=== PATIENT | female | born 1945 | race Asian ===

== ENCOUNTER 2018-10-20 20:13 | Inpatient (IN) | payer MEDICARE, OTHER ==
[~2018-10-20] VITALS: Ht 157.5 cm; Wt 49.9 kg
--- NOTE | 2018-10-20 20:22 | NUR ---
RALPH FROM HOME FOR MEDICAL CLEARANCE, PT ON HOLD OF TODAY AT 1842 FOR DTS. PLAN TO HANG HERSELF NAKED FROM [facility]. NO MEDICAL COMPLAINTS AT THIS TIME. ON MONITOR, MADE COMFORTABLE, READY FOR EVAL.
[2018-10-20 20:45] LABS: BASOPHILS # (AUTO) 0.1 /CMM (0.0-0.2); BASOPHILS % (AUTO) 1.3 % (0.0-2.0); EOSINOPHILS % (AUTO) 1.1 % (0.0-6.0); HEMATOCRIT 39 % (33-45); HEMOGLOBIN 13.1 g/dL (11.5-14.8); LYMPHOCYTES # (AUTO) 2.1 /CMM (0.8-4.8); MEAN CORPUSCULAR HGB CONC 33 g/dl (31.0-36.0); MEAN CORPUSCULAR VOLUME 89 fL (82-100); MONOCYTES # (AUTO) 0.3 /CMM (0.1-1.30); MONOCYTES % (AUTO) 5.6 % (2.0-12.0); NEUTROPHILS # (AUTO) 3.2 /CMM (1.8-8.9); PLATELET COUNT (AUTO) 197 /CMM (150-450); RED BLOOD CELL COUNT(AUTO) 4.41 MIL/uL (4.0-5.2); WHITE BLOOD COUNT (AUTO) 5.7 K/uL (4.3-11.0)
[2018-10-20 20:51] LABS: APPEARANCE,URINE Clear (CLEAR); BILIRUBIN,URINE Negative (NEGATIVE); BLOOD, URINE Trace-intact Ery/uL (NEGATIVE); COLOR,URINE Yellow (YELLOW); KETONES,URINE Negative (NEGATIVE); LEUKOCYTE ESTERASE ,URINE Negative (NEGATIVE); NITRITE, URINE Negative (NEGATIVE); PROTEIN,URINE Negative (NEGATIVE); UGLUCOSE Negative (NEGATIVE); UROBILINOGEN,URINE 0.2 EU/dL (0.2)
[2018-10-20 20:54] LABS: CALCIUM, SERUM 9.2 mg/dL (8.5-10.1); CARBON DIOXIDE 32 mmol/L (21-32); CHLORIDE 106 mmol/L (98-107); CREATININE 0.8 mg/dL (0.6-1.3); GLUCOSE 121 mg/dL (74-106); POTASSIUM 4.4 mmol/L (3.5-5.1); SODIUM SERUM 143 mmol/L (136-145); UREA NITROGEN, BLOOD 18 mg/dL (7-18)
[2018-10-20 20:56] LABS: BACTERIA,URINE Rare /HPF (None Seen); SQUAMOUS EPITHELIAL CELL,UR Few /HPF (None Seen); WBC,URINE NONE SEEN /HPF (0-3)
[2018-10-20 20:59] LABS: ALANINE AMINOTRANSFERASE 20 U/L (12-78); ALKALINE PHOSPHATASE 101 U/L (46-116); ASPARTATE AMINOTRANSFERASE 16 U/L (15-37); BILIRUBIN,DIRECT 0.1 mg/dL (0.0-0.2); BILIRUBIN,TOTAL 0.2 mg/dL (0.2-1.0)
[2018-10-20 21:01] LABS: ACETAMINOPHEN < 2 ug/ml (10-30); ALCOHOL, BLOOD < 3 mg/dL (0-0); SALICYLATE 0.2 mg/dL (2.8-20.0)
--- NOTE | 2018-10-20 21:28 | NUR ---
CALLED FOR GPS BED [id number], TURNED IN MOVE SHEET
--- NOTE | 2018-10-20 21:40 | NUR ---
CALLED GPS TO GIVE REPORT. ASKED TO CALL BACK IN 30 MIN
--- NOTE | 2018-10-20 22:18 | NUR ---
REPORT GIVEN TO DAVID CID FOR [id number]. PT TRANSFERRED TO UNIT VIA WC
[2018-10-20 22:30] VITALS: BP 154/87
[2018-10-20] MEDS ORDERED: MAG HYDROX/AL HYDROX/SIMETH 30 ML UDC PO PRN (23:30)
[2018-10-20] MEDS ORDERED: BLOOD SUGAR DIAGNOSTIC 1 EACH STRIP IN ONE (23:30)
[2018-10-20] MEDS ORDERED: ZOLPIDEM TARTRATE 5 MG TABLET PO PRN (23:30)
[2018-10-20] MEDS ORDERED: ACETAMINOPHEN 325 MG TABLET PO PRN (23:30)
[2018-10-21] MEDS: LORAZEPAM 0.5 MG TABLET PO PRN ×2 (01:40→21:43)
--- NOTE | 2018-10-21 04:01 | NUR ---
GPS/LEAD SETTER NOTE: ADMITTED A 73 YEAR OLD FEMALE FROM [facility], INITIALLY CAME FROM [facility] ON 150 HOLD FOR DTS. UPON FACE TO FACE PATIENT REPORTED THAT SHE FEELS"A LOT OF DEPRESSION," " EVERYTHING " TRIGGERS HER SUICIDAL THOUGHTS FOR A LEAST 2 WEEKS, SHE ALSO REPORTED THAT SHE IS GOING TO TAKE HER CLOTHES OFF AND HANG HERSELF FROM A BRIDGE. PATIENT CAME TO THE UNIT VIA GURNEY AROUND 2215, A/O X3, SHOWS NO S/S OF ANY PAIN. CALM, COOPERATIVE, DENIES SI/HI, AT THIS TIME. AMBULATORY. SKIN ASSESSMENT DONE, WOUND CONSULT TRIGGERED, HAS LEFT AND RIGHT ARM RASHES, DISCOLORATION, MULTIPLE SCABS. BELONGINGS INVENTORIED AND CHECKED FOR CONTRABAND. PATIENT'S RIGHTS AND MEDICATION GUIDE GIVEN. UNABLE TO NOTIFY FAMILY ABOUT ADMISSION, NOTHING GIVEN PER CHART. PATIENT PLACED ON FALL PRECAUTION, BED LOCKED AND PLACED ON LOWEST POSITION. WILL CONTINUE TO MONITOR Q 15 INS. TO MAINTAIN SAFETY.
[2018-10-21] MEDS ORDERED: GABA-534 PO (05:40)
[2018-10-21] MEDS ORDERED: SIMV20TA6 PO (05:40)
[2018-10-21] MEDS ORDERED: NAPR-1192 PO (05:40)
[2018-10-21 07:29] LABS: ALANINE AMINOTRANSFERASE 18 U/L (12-78); ALBUMIN 3.7 g/dL (3.4-5.0); ALKALINE PHOSPHATASE 63 U/L (46-116); ASPARTATE AMINOTRANSFERASE 20 U/L (15-37); BILIRUBIN,TOTAL 0.5 mg/dL (0.2-1.0); CARBON DIOXIDE 29 mmol/L (21-32); CHLORIDE 106 mmol/L (98-107); CREATININE 0.7 mg/dL (0.6-1.3); GLUCOSE 89 mg/dL (74-106); SODIUM SERUM 142 mmol/L (136-145); TOTAL PROTEIN, SERUM 7.5 g/dL (6.4-8.2); UREA NITROGEN, BLOOD 13 mg/dL (7-18)
[2018-10-21 07:31] LABS: CHOLESTEROL 167 mg/dL (<200); HDL CHOLESTEROL 60 mg/dL (40-60); LDL 99 mg/dL (0-99); TRIGLYCERIDES 57 mg/dL (30-150)
[2018-10-21 08:00] VITALS: BP 130/73
--- NOTE | 2018-10-21 13:47 | NUR ---
WOUND CARE CONSULT: PT PRESENTS AMBULATORY AND CONTINENT WITH SKIN CONDITION ON BOTH WRISTS WHICH PT STATES IS ITCHY. DEFER TO MD FOR SKIN CONDITION. WILL SEE PRN.
--- NOTE | 2018-10-21 13:50 | NUR ---
[facility] [phone] who stated that during a presentation that psychologist Dr. Sifuentes was having at the [facility] pt made a comments using the word "suicide" Emily stated that when her and Dr. Sifuentes approached pt and asked if she had a plan pt responded with, "yes by hanging myself." Emily stated that pt did in fact make a suicidal statement and stated that pt has symptoms of confusion and disorganized from time to time.
--- NOTE | 2018-10-21 14:17 | NUR ---
INITIAL DISCHARGE PLAN: Per patient and son Checo [phone], pt will be discharged back to [facility] [address] [facility] [address] . Roshni, technical coordinator stated pt is able to return once stable. SW will help form a safe and proper discharge in collaboration with .
--- NOTE | 2018-10-21 15:49 | NUR ---
GPS/RN-NOTES SHMUEL FABIAN SEEN THE PATIENT TODAY,MADE AWARE THAT PATIENT'S MEDICATION IN THE COMPUTER AND NEED TO BE RECONCILE.
[2018-10-21 16:00] VITALS: BP 121/72
[2018-10-21] MEDS: MAGNESIUM HYDROXIDE 30 ML UDC PO PRN (18:27)
--- NOTE | 2018-10-21 18:28 | NUR ---
GPS/RN-NOTES PATIENT COMPLAIN OF CONSTIPATION AND REQUESTING FOR MEDICATION. MOM 30 ML GIVEN PRN ORDER. WILL CONT. MONITORING AND ENDORSE TO INCOMING SHIFT FOR CONTINUITY OF CARE.
[2018-10-21 19:58] VITALS: BP 133/71
[2018-10-21] MEDS: SIMVASTATIN 20 MG TABLET PO SCH (21:43)
[2018-10-21] MEDS: QUETIAPINE FUMARATE 25 MG TABLET PO SCH (21:43)
[2018-10-22 08:00] VITALS: BP 103/69
[2018-10-22] MEDS: MAGNESIUM HYDROXIDE 30 ML UDC PO PRN (08:38)
[2018-10-22] MEDS: ESCITALOPRAM OXALATE (10 MG) 10 MG TABLET PO SCH (08:38)
[2018-10-22 16:00] VITALS: BP 113/68
[2018-10-22 20:00] VITALS: BP 129/70
[2018-10-22] MEDS: QUETIAPINE FUMARATE 25 MG TABLET PO SCH (21:12)
[2018-10-22] MEDS: SIMVASTATIN 20 MG TABLET PO SCH (21:12)
[2018-10-23 08:00] VITALS: BP 136/76
[2018-10-23] MEDS: ESCITALOPRAM OXALATE (10 MG) 10 MG TABLET PO SCH (09:02)
[2018-10-23] MEDS: LORAZEPAM 0.5 MG TABLET PO PRN (13:27)
--- NOTE | 2018-10-23 13:27 | NUR ---
RN NOTE: PATIENT CAME TO ME ANXIOUS ASKING FOR ATIVAN AND STATED THAT I NEVER GAVE HER MORNING MEDICATION. I INFORMED HER THAT I DID GIVE HER MORNING MEDICATION BUT PATIENT KEPT STATING THAT I DIDN'T. I WENT OVER THE EMAR WITH THE PATIENT AND PATIENT STILL DIDNT BELIEVE ME AND STATED THAT SHE WANTS THE ATIVAN AND ALWAYS GETS IT FIRST THING IN THE MORNING. I INFORMED HER THAT THE ATIVAN ISN'T AROUND THE CLOCK AND IS ONLY GIVEN WHEN THE PATIENT IS SYMPTOMATIC OR ASKS FOR IT. PATIENT DISAGREES AND KEEPS ARGUING WITH ME. PATIENT STATED SHE WANTED HER ATIVAN. 1MG PO ATIVAN GIVEN DUE TO PATIENT FEELING ANXIOUS, RESTLESS.
[2018-10-23 16:00] VITALS: BP 142/80
[2018-10-23 20:26] VITALS: BP 133/73
[2018-10-23] MEDS: SIMVASTATIN 20 MG TABLET PO SCH (21:12)
[2018-10-23] MEDS: QUETIAPINE FUMARATE 25 MG TABLET PO SCH (21:13)
[2018-10-24 08:00] VITALS: BP 114/69
[2018-10-24] MEDS: ESCITALOPRAM OXALATE (10 MG) 10 MG TABLET PO SCH (09:05)
[2018-10-24] MEDS: LORAZEPAM 0.5 MG TABLET PO PRN (12:47)
--- NOTE | 2018-10-24 12:47 | NUR ---
RN NOTE: PATIENT COMPLAINING OF ANXIETY. ATIVAN 1 MG PO PRN GIVEN.
[2018-10-24 16:00] VITALS: BP 134/69
[2018-10-24 20:09] VITALS: BP 127/74
[2018-10-24] MEDS: QUETIAPINE FUMARATE 25 MG TABLET PO SCH (21:08)
[2018-10-24] MEDS: SIMVASTATIN 20 MG TABLET PO SCH (21:08)
[2018-10-25 08:00] VITALS: BP 112/71
[2018-10-25] MEDS: ESCITALOPRAM OXALATE (10 MG) 10 MG TABLET PO SCH (09:20)
[2018-10-25] MEDS: LORAZEPAM 0.5 MG TABLET PO PRN (13:51)
--- NOTE | 2018-10-25 13:54 | NUR ---
RN-CO: ATIVAN 1 MG PO GIVEN FOR ANXIETY.
--- NOTE | 2018-10-25 14:36 | NUR ---
KATERYNA contacted pts flakita Kessler [phone] and informed him pt will be discharged tomorrow 10/26/18, son stated he would pick pt up at 1000am and transport pt home.
--- NOTE | 2018-10-25 15:04 | NUR ---
KATERYNA contacted Dr. Bear Pulido Address: [address] [place] [phone] and left a voicemail requesting follow up appointment for pt.
--- NOTE | 2018-10-25 15:32 | NUR ---
DISCHARGE NOTE: Pt will be discharged on Wednesday10/26/18 at 10:00am home to [facility] [address] [facility] [address] . Pts son Checo [phone] will be picking pt up and transporting home. Pt will be followed up on by psychiatrist from [facility] Dr. Bear Pulido Address: [address] [place] [address] on Wednesday10/28/18 at 2:00pm. Pt will also follow up at [facility] health service in [facility] Address: [address] [facility] [address], [place] [address] , faxed clinical information to Pt was also given a referral to [facility] Address: [address] [place] [address] . The multidisciplinary exitcare form was done, printed, signed, and given to the patient.
[2018-10-25 16:00] VITALS: BP 134/76
[2018-10-25] MEDS: SIMVASTATIN 20 MG TABLET PO SCH (21:20)
[2018-10-25] MEDS: QUETIAPINE FUMARATE 25 MG TABLET PO SCH (21:20)
[2018-10-25 21:48] VITALS: BP 134/78
[2018-10-26] MEDS: ESCITALOPRAM OXALATE (10 MG) 10 MG TABLET PO SCH (09:15)
[2018-10-26 09:17] VITALS: BP 129/72
--- NOTE | 2018-10-26 10:30 | NUR ---
PATIENT WAS DISCHARGED TODAY AT 1030 HOME TO [facility] [address] [address] [facility] [address] . PT'S SON OTONIEL PICKED UP PT TODAY AND PT LEFT THE UNIT VIA WHEELCHAIR TO PRIVATE VEHICLE. PATIENT IS IN STABLE CONDITION. VSS. NO ACUTE DISTRESS NOTED. NO COMPLAINTS. COMPLIANT WITH MEDICATION MANAGEMENT. COOPERATIVE WITH PLAN OF CARE. PSYCHIATRIC TREATMENT PLANS MET. MEDICAL TREATMENT PLANS DEFERRED FOR CONTINUAL MONITORING. DENIES SI/HI VAH AT THE TIME OF DISCHARGE. WOUND PICTURES TAKEN AND DOCUMENTED IN CHART. EDUCATED PATIENT ABOUT AFTERCARE WITH COPY PROVIDED. RETURNED PERSONAL BELONGINGS TO PATIENT. MEDICATIONS RECONCILED WITH DR. VILLA, PER PT SHE DOES NOT NEED PRESCRIPTIONS AND HAS SIMVASTATIN AT HOME. PSYCHIATRIC DISCHARGE ORDERS AND PRESCRIPTIONS WERE GIVEN BY DR. ESTRADA. DISCHARGE PAPERWORK SIGNED. FOR FOLLOW UP WITH PSYCHIATRIST AND HYPERION DEVELOPER AT WITHIN 1 WEEK.
== END 2018-10-26 10:30 | disposition home or self-care (01) | DRG 885 ==
LOC: ER 20:16 → GPS 21:32
PROVIDERS: ADMIT Psychiatry & Neurology Psychiatry; ATTEND Student in an Organized Health Care Education/Training Program
DX: F33.3 Major depressive disorder, recurrent, severe with psychotic symptoms (principal); R45.851 Suicidal ideations; F43.10 Post-traumatic stress disorder, unspecified; E78.5 Hyperlipidemia, unspecified
CPT/HCPCS: 36415; 80048-TC; 80053-TC; 80061-TC; 80076-TC; 80305; 81000-TC; 84443-TC; 85025-TC; 87081-TC; G0480